=== PATIENT | male | born 1950 | race Caucasian/White ===

== ENCOUNTER 2019-08-23 21:49 | Emergency (ER) | payer MEDICARE ==
[~2019-08-23] VITALS: Ht 175.3 cm; Wt 109.1 kg
[2019-08-23] MEDS ORDERED: LIDOcaine 2% 10ml TOPICAL JELLY (Urojet) MM STA ×2 (22:19→23:33)
--- NOTE | 2019-08-23 22:20 | NUR ---
SBAR TO DR ECHEVERRIA, RECEIVED ORDERS.
--- NOTE | 2019-08-23 23:01 | NUR ---
WITH INITIAL IRRIGATION I WAS ABLE TO REMOVE LARGE AMOUNTS OF CLOTS. I HAVE SINCE REDONE IRRIGATION AND ONLY SOME FLEX. HOWEVER, I BELIEVE THERE TO BE A LARGER CLOT IN THERE BECAUSE I WILL INSTILL 50 MLS AND FLUSH VIGOROUSLY AND THEN PULL BACK AND GET 30MLS AND IT WILL FORCEFULLY JUST STOP AT 30. I WILL INFUSE BUT NOT WITHDRAWL. WHEN I HOOK HIM BACK UP TO BS DRAINAGE, THE REST OF THE WATER WILL GO INTO COLLECTION BAG.
--- NOTE | 2019-08-23 23:24 | NUR ---
INFORMED DR ECHEVERRIA OF MY SUSPICION. I AM GETTING UROLOGY CART FOR A 3-WAY CATHETER FOR CBI.
--- NOTE | 2019-08-23 23:58 | NUR ---
17 F ROGERS CATH REMOVED, TIP INTACT. UROJET INSTILLED AND A 22 F YESI CATHETER PLACED WITHOUT DIFFICULTY AND ATTACHED TO CBI FOR IMMEDIATE RETURNS THAT ARE ALL CLEAR. AFTER 1 L OF FLUID INFUSED I IRRIGATED VIGOROUSLY AND DID NOT HAVE ANY ISSUES NOR DID I HAVE ANY CLOTS. CBI HOOKED BACK UP.
[2019-08-24] MEDS ORDERED: cephalexin 250mg capsule PO ONE (00:10)
--- NOTE | 2019-08-24 00:11 | NUR ---
informed Dr Stahl of cbi result. he is going to go in to see the patient to let me know if the cath can be removed or not.
[2019-08-24] MEDS ORDERED: CEPH500C5 PO (00:12)
--- NOTE | 2019-08-24 00:25 | NUR ---
DR ECHEVERRIA STATED I MAY REMOVE ROGERS, SO IT WAS REMOVED WITH INTACT TIP AND MINIMAL DISCOMFORT TO PATIENT.
--- NOTE | 2019-08-24 00:25 | NUR ---
DR ECHEVERRIA STATED THE UA IS NOT NECESSARY SINCE IT'LL JUST BE SALINE/CANCELLED.
[2019-08-24 00:29] VITALS: BP 168/72
== END 2019-08-24 00:31 | disposition home or self-care (01) ==
LOC: ER 21:50
DX: R33.9 Retention of urine, unspecified (principal); N30.41 Irradiation cystitis with hematuria; I25.10 Atherosclerotic heart disease of native coronary artery without angina pectoris; I10 Essential (primary) hypertension; I25.2 Old myocardial infarction; E11.9 Type 2 diabetes mellitus without complications; Z95.5 Presence of coronary angioplasty implant and graft; Z98.890 Other specified postprocedural states; Z85.46 Personal history of malignant neoplasm of prostate
CPT/HCPCS: 51702; 99284

== ENCOUNTER 2023-12-14 03:43 | Observation (INO) | payer MEDICARE ==
[~2023-12-14] VITALS: Ht 175.3 cm; Wt 114.7 kg
[2023-12-14] MEDS: aspirin 81mg tab.chew PO ONE (04:11)
[2023-12-14] MEDS: ondansetron/PF 4mg/2ml inj IV ONE (04:23)
[2023-12-14] MEDS: morphine 4 MG/ML inj SYRINge IV ONE (04:35)
[2023-12-14] MEDS: mag hydrox/Alum hydrox/simeth 30ml oral suspension PO ONE (04:37)
[2023-12-14] MEDS: LIDOcaine 2% Viscous 15ml cup TP ONE (04:37)
[2023-12-14 05:12] LABS: ALANINE AMINOTRANSFERASE 57 U/L (12-78); ALBUMIN 3.9 G/DL (3.4-5.0); ALBUMIN/GLOBULIN RATIO 0.9 (1.1-1.5); ALKALINE PHOSPHATASE 88 IU/L (46-116); ANION GAP 11 (8-16); ASPARTATE AMINO TRANSFERASE 40 U/L (10-37); BILIRUBIN,TOTAL 0.6 MG/DL (0.1-1.0); BLOOD UREA NITROGEN 25 MG/DL (7-18); BUN/CREATININE RATIO 17.2 (10.0-20.0); CALCIUM 10.4 MG/DL (8.5-10.1); CHLORIDE 102 MMOL/L (99-107); CREATININE 1.45 MG/DL (0.60-1.10); GLUCOSE 217 MG/DL (70-104); POTASSIUM 3.8 MMOL/L (3.5-5.1); SODIUM 138 MMOL/L (135-145); TOTAL CARBON DIOXIDE 24.8 MMOL/L (24-32); TOTAL PROTEIN 8.1 G/DL (6.4-8.2); eCRCL 46 ML/MIN; eGFR 48 ML/MIN
[2023-12-14] MEDS ORDERED: iohexol 350MG/ML 100ml bottle IV ONE (05:17)
[2023-12-14 05:21] LABS: LIPASE 91 U/L (16-77); PRO BRAIN NATRIURETIC PEPTIDE 105 PG/ML (0-125)
[2023-12-14 07:37] LABS: BASOPHILS % (AUTO) 0.4 % (0-1); EOSINOPHILS # (AUTO) 0.2 X10'3 (0-0.9); EOSINOPHILS % (AUTO) 1.7 % (0-6); HEMATOCRIT 47.6 % (42.0-52.0); HEMOGLOBIN 15.9 g/dl (14.0-17.9); LYMPHOCYTES # (AUTO) 1.1 X10'3 (1.1-4.8); LYMPHOCYTES % (AUTO) 11.1 % (21-51); MEAN CORPUSCULAR HGB CONC 33.5 g/dL (33.0-36.5); MEAN CORPUSCULAR VOLUME 92.6 FL (78-98); MEAN PLATELET VOLUME 9.8 FL (7.4-10.4); MONOCYTES # (AUTO) 0.8 X10'3 (0-0.9); MONOCYTES % (AUTO) 7.8 % (2-12); NEUTROPHILS # (AUTO) 7.7 X10'3 (1.8-7.7); PLATELET COUNT 155 X10'3 (140-440); RED BLOOD COUNT 5.14 X10'6 (4.70-6.10); RED CELL DISTRIBUTION WIDTH 14.3 % (11.5-14.5); WHITE BLOOD COUNT 9.8 X10'3 (4.5-11.0)
[2023-12-14] MEDS ORDERED: mag hydrox/Alum hydrox/simeth 30ml oral suspension PO PRN (10:20)
[2023-12-14] MEDS ORDERED: HYDROcodone/acetaminophen 5mg/325mg tablet PO PRN (10:20)
[2023-12-14] MEDS ORDERED: acetaminophen 325mg tablet PO PRN ×2 (10:20)
[2023-12-14] MEDS ORDERED: ondansetron/PF 4mg/2ml inj IV PRN (10:20)
[2023-12-14] MEDS ORDERED: magnesium hydroxide 30ml (MOM) UD suspension PO PRN (10:20)
[2023-12-14] MEDS ORDERED: morphine 2 MG/ML inj. syringe IV PRN ×2 (10:20)
[2023-12-14] MEDS ORDERED: LOSA100T58 PO (12:09)
[2023-12-14] MEDS ORDERED: CELE-127 PO (12:09)
[2023-12-14] MEDS ORDERED: METO100T14 PO (12:09)
[2023-12-14] MEDS ORDERED: ALLO300T8 PO (12:09)
[2023-12-14] MEDS ORDERED: SPIR25TA5 PO (12:09)
[2023-12-14] MEDS ORDERED: AMOX-580 PO (12:09)
[2023-12-14] MEDS ORDERED: ATOR40TA72 PO (12:09)
[2023-12-14] MEDS ORDERED: INSU100V9 SQ (12:09)
[2023-12-14] MEDS ORDERED: AMLO10TA13 PO (12:09)
[2023-12-14] MEDS ORDERED: HYDR-3964 PO (12:09)
[2023-12-14] MEDS ORDERED: FURO80TA3 PO (12:09)
[2023-12-14] MEDS ORDERED: ASPI-611 PO (12:20)
[2023-12-14] MEDS ORDERED: ACET-3414 (12:20)
[2023-12-14 12:31] VITALS: BP 149/84; PULSE 88; RESP 16; TEMP 97.8; O2SAT 93
[2023-12-14] MEDS ORDERED: dextrose 50%-water 50ml dispensing syringe IV PRN ×2 (12:45)
[2023-12-14] MEDS ORDERED: glucagon, human recombinant 1mg kit SUBCUT PRN (12:45)
[2023-12-14] MEDS ORDERED: DEXTROSE 15 GM of carb/4 tabs (each vial/BOTTLE has 4 tablets) PO PRN ×2 (12:45)
[2023-12-14] MEDS ORDERED: INSULIN LISPRO 100 UNIT/ML INSULN.PEN MULTI-DOSE SQ SCH (12:45)
[2023-12-14] MEDS: MESSAGE TO PHARMACY PO ONE (12:55)
[2023-12-14] MEDS: pantoprazole 40 MG vial IV SCH (13:13)
[2023-12-14 14:45] LABS: HEMOGLOBIN A1C 8.3 % (4.5-6.2)
[2023-12-14] MEDS: insulin Lispro (HumaLOG) vial - multi-dose SQ SCH (15:02)
[2023-12-14 18:00] VITALS: BP 132/76; PULSE 92; RESP 13; TEMP 97.3; O2SAT 97
[2023-12-14] MEDS ORDERED: nitroGLYCERIN 0.4mg SUBLingual tab SL PRN (19:35)
[2023-12-14 20:00] VITALS: RESP 13; O2SAT 97
[2023-12-14] MEDS: docusate sod 100mg capsule PO SCH (20:27)
[2023-12-14] MEDS: insulin glargine (Lantus) pen - multi-dose SQ SCH (20:44)
[2023-12-14 22:00] VITALS: BP 153/83; PULSE 89; RESP 14; TEMP 97.5; O2SAT 96
[2023-12-15 02:00] VITALS: BP 136/85; PULSE 77; RESP 13; TEMP 97.5; O2SAT 97
[2023-12-15 06:00] VITALS: BP 129/64; PULSE 79; RESP 13; TEMP 97; O2SAT 96
[2023-12-15 07:39] LABS: BASOPHILS % (AUTO) 0.4 % (0-1); EOSINOPHILS # (AUTO) 0.2 X10'3 (0-0.9); EOSINOPHILS % (AUTO) 3.8 % (0-6); HEMATOCRIT 44.9 % (42.0-52.0); LYMPHOCYTES # (AUTO) 1.2 X10'3 (1.1-4.8); LYMPHOCYTES % (AUTO) 19.3 % (21-51); MEAN CORPUSCULAR HEMOGLOBIN 30.8 PG (27.0-31.0); MEAN CORPUSCULAR HGB CONC 33.4 g/dL (33.0-36.5); MEAN CORPUSCULAR VOLUME 92.2 FL (78-98); MEAN PLATELET VOLUME 9.5 FL (7.4-10.4); MONOCYTES # (AUTO) 0.6 X10'3 (0-0.9); MONOCYTES % (AUTO) 9.6 % (2-12); NEUTROPHILS # (AUTO) 4.2 X10'3 (1.8-7.7); NEUTROPHILS % (AUTO) 66.9 % (42-75); PLATELET COUNT 140 X10'3 (140-440); RED BLOOD COUNT 4.87 X10'6 (4.70-6.10); RED CELL DISTRIBUTION WIDTH 14.4 % (11.5-14.5); WHITE BLOOD COUNT 6.3 X10'3 (4.5-11.0)
[2023-12-15] MEDS: spironolactone 25 MG tablet PO SCH (07:48)
[2023-12-15] MEDS: atorvastatin 20mg tablet PO SCH (07:48)
[2023-12-15 07:49] VITALS: BP_SYST 129; PULSE 79
[2023-12-15] MEDS: aspirin 81mg, enteric-coated 1 TAB TABLET.DR PO SCH (07:49)
[2023-12-15] MEDS: furosemide 40mg tablet PO SCH (07:49)
[2023-12-15] MEDS: losartan 50mg tablet PO SCH (07:49)
[2023-12-15] MEDS: metoprolol tartrate 50mg tablet PO SCH (07:49)
[2023-12-15 08:00] VITALS: RESP 13; O2SAT 97
[2023-12-15 08:39] LABS: ALBUMIN 3.3 G/DL (3.4-5.0); ANION GAP 7 (8-16); BLOOD UREA NITROGEN 19 MG/DL (7-18); BUN/CREATININE RATIO 16.5 (10.0-20.0); CALCIUM 9.3 MG/DL (8.5-10.1); CHLORIDE 103 MMOL/L (99-107); CHOL/HDL RATIO 3.2 (0.00-4.99); CHOLESTEROL 100 MG/DL (0-200); CREATININE 1.15 MG/DL (0.60-1.10); GLUCOSE 145 MG/DL (70-104); HDL CHOLESTEROL 31 MG/DL (35-60); LDL CHOLESTEROL 50 MG/DL (50-100); POTASSIUM 4.2 MMOL/L (3.5-5.1); SODIUM 134 MMOL/L (135-145); TOTAL CARBON DIOXIDE 23.9 MMOL/L (24-32); TRIGLYCERIDES 150 MG/DL (20-135); eCRCL 58 ML/MIN; eGFR 63 ML/MIN
== END 2023-12-15 11:48 | disposition home or self-care (01) ==
LOC: ER 03:44 → ED HOLD 10:22 → PCU 3S 11:52
PROVIDERS: ADMIT Internal Medicine; ATTEND Internal Medicine
DX: R07.89 Other chest pain (principal); I10 Essential (primary) hypertension; E11.9 Type 2 diabetes mellitus without complications; I25.10 Atherosclerotic heart disease of native coronary artery without angina pectoris; K59.00 Constipation, unspecified; E78.5 Hyperlipidemia, unspecified; M19.90 Unspecified osteoarthritis, unspecified site; I25.2 Old myocardial infarction; Z85.46 Personal history of malignant neoplasm of prostate; Z79.899 Other long term (current) drug therapy
CPT/HCPCS: 36415; 71045; 71275; 74175; 80048; 80053; 80061; 82948; 83036; 83690; 83880; 84484; 85025; 93005; 93306; 96374; 96375; 96376; 99285; C9113; G0378; J1815; J2270; J2405; J3490; Q9967; A4615